=== PATIENT | female | born 1950 | race Two or more races ===

== ENCOUNTER 2021-12-09 14:49 | Inpatient (IN) | payer OTHER, MEDICAID ==
[~2021-12-09] VITALS: Ht 165.1 cm; Wt 70.8 kg
[2021-12-09] MEDS ORDERED: AZITHROMYCIN 500MG/ 250ML 250 ML IV ONE (18:30)
[2021-12-09] MEDS ORDERED: cefTRIAXone 1GM/50ML D5W 50 ML IV ONE (18:30)
[2021-12-09 19:31] LABS: Urine Bacteria MANY /hpf (None Seen); Urine Blood 2+ /uL (Negative); Urine Mucus FEW (None Seen); Urine Specific Gravity 1.022 (1.001-1.035); Urine WBC 169 /hpf (0 - 5); Urine WBC Clumps PRESENT /hpf (None Seen)
[2021-12-09 20:13] LABS: Hematocrit 43.4 % (36.0-46.0); Hemoglobin 14.8 g/dL (12.2-16.2); Mean Corpuscular Hemoglobin 30.4 pg (28.0-32.0); Mean Corpuscular Volume 89.3 fL (80.0-100.0); Red Blood Cells 4.86 10^6/uL (4.0-5.20); Red Cell Distribution Width 14.3 % (11.8-14.3); White Blood Cell 14.5 10^3/uL (4.4-10.8)
[2021-12-09 20:16] LABS: Basophils % (manual) 0 (0.0-2.0); Blast Cells 0; Eosinophils % (manual) 0 (0-7); Metamyelocytes % 0; Myelocytes % 0; Promyelocytes % 0; Reactive Lymphocytes 0
[2021-12-09 20:31] LABS: Albumin 2.4 g/dL (3.4-5.0); Calcium 8.9 mg/dL (8.5-10.1); Magnesium 3.2 mg/dL (1.6-2.6); Potassium 4.7 mmol/L (3.5-5.1)
[2021-12-09 20:36] LABS: BUN/Creatinine Ratio 26.8; Bilirubin, Total 0.3 mg/dL (0.2-1.0); Total Protein 7.8 g/dL (6.4-8.2)
[2021-12-09 21:03] LABS: Band Neutrophils % (manual) 3; Lymphocytes % (manual) 4 (10.0-50.0); Monocytes % (manual) 3 (0-12)
[2021-12-09] MEDS ORDERED: DexAMETHasone SOD PHOS 10MG/1ML VIAL INJ IV ONE (21:30)
[2021-12-10] MEDS ORDERED: MORPHINE SULFATE 4 MG/ML SYR/VIAL IV ONE ×2 (01:30→05:00)
[2021-12-10] MEDS ORDERED: ONDANSETRON HCL 4 MG/2 ML VIAL IV ONE (01:30)
[2021-12-10] MEDS ORDERED: DEXTROSE (50%) 50ML SYRG IV PRN (06:00)
[2021-12-10] MEDS ORDERED: MORPHINE SULFATE INJECTION 2 MG/ML SYRG IV PRN (06:00)
[2021-12-10] MEDS ORDERED: DOCUSATE SOD 100 MG CAP PO PRN (06:00)
[2021-12-10] MEDS ORDERED: ACETAMINOPHEN 500 MG TAB PO PRN (06:00)
[2021-12-10] MEDS ORDERED: NITROGLYCERIN 0.4 MG SL TAB SL PRN (06:00)
[2021-12-10] MEDS ORDERED: REMDESIVIR PER PHARMACY 0 ML IV SCH (08:30)
[2021-12-10] MEDS: ACCU-CHEK COMFORT CURVE STRIP VI SCH ×4 (09:55→23:19)
[2021-12-10] MEDS: InsuLIN REG 1unit/0.01ml Soln (100units/ml) SC SCH ×4 (09:55→23:29)
[2021-12-10] MEDS: FAMOTIDINE (10MG/ML) 2ML VL IV SCH ×2 (10:00→23:23)
[2021-12-10] MEDS: MULTIPLE VITAMIN TAB PO SCH (10:00)
[2021-12-10] MEDS: AZITHROMYCIN 500MG/ 250ML 250 ML IV SCH (10:00)
[2021-12-10] MEDS: DexAMETHasone SOD PHOS 10MG/1ML VIAL INJ IV SCH (10:00)
[2021-12-10] MEDS: ASCORBIC ACID 1,000 MG TAB PO SCH (10:00)
[2021-12-10] MEDS: ZINC SULFATE 220mg CAP or TAB PO SCH (10:00)
[2021-12-10] MEDS: CHOLECALCIFEROL (VITD3) 2,000 UNIT CAP/TAB PO SCH (10:00)
[2021-12-10] MEDS: ENOXAPARIN SOD 40 MG/0.4 ML SYRINGE SC SCH ×2 (10:00→23:23)
[2021-12-10] MEDS: SODIUM CHLOR 0.9% PF (SALINE LOCK) 10ML VIAL/SYR IV SCH ×3 (10:15→23:19)
[2021-12-10] MEDS: cefTRIAXone 1GM/50ML D5W 50 ML IV SCH (10:49)
[2021-12-10] MEDS: MORPHINE SULFATE 4 MG/ML SYR/VIAL IV PRN ×2 (14:47→20:08)
[2021-12-10] MEDS: BUDESONIDE (INHALATION) 180 MCG IH IN SCH ×2 (14:48→22:00)
[2021-12-10] MEDS: ONDANSETRON HCL 4 MG/2 ML VIAL IV PRN (14:48)
[2021-12-10] MEDS ORDERED: REMDESIVIR 200 MG in NS 210ml LOADING DOSE ADULT IV ONE (15:00)
[2021-12-10 19:30] VITALS: BP 154/77
[2021-12-10] MEDS: HYDROcodone-ACET 5/325MG TAB PO PRN (21:52)
[2021-12-10 22:00] VITALS: BP 161/72
[2021-12-10] MEDS ORDERED: TEMAZEPAM 15 MG CAP PO PRN (22:30)
[2021-12-10] MEDS ORDERED: LABETALOL HCL 5 MG/ML 4ML SYRINGE IV PRN (23:15)
[2021-12-11] MEDS: MORPHINE SULFATE 4 MG/ML SYR/VIAL IV PRN ×2 (00:17→04:58)
[2021-12-11] MEDS ORDERED: VANCOMYCIN PER PHARMACY 0 MG IV SCH (02:45)
[2021-12-11] MEDS ORDERED: VANCOMYCIN 1GM/250ML 250 ML IV ONE (03:00)
[2021-12-11 05:00] VITALS: BP 164/86
[2021-12-11] MEDS ORDERED: ALBUTEROL SULF 2.5 MG/0.5ML(0.5%) NEB SOLN NEB PRN (05:30)
[2021-12-11] MEDS ORDERED: dilTIAZem 25 MG/5 ML VIAL IV ONE ×2 (05:30→05:31)
[2021-12-11] MEDS ORDERED: ADENOSINE 6 MG/2 ML INJ IV ONE ×4 (05:55→06:15)
[2021-12-11] MEDS: SODIUM CHLOR 0.9% PF (SALINE LOCK) 10ML VIAL/SYR IV SCH ×3 (06:08→21:23)
[2021-12-11] MEDS: ACCU-CHEK COMFORT CURVE STRIP VI SCH ×4 (06:09→21:33)
[2021-12-11] MEDS: InsuLIN REG 1unit/0.01ml Soln (100units/ml) SC SCH ×4 (06:16→21:33)
[2021-12-11] MEDS ORDERED: AMIODARONE HCL 150 MG in D5W 5% 100 ML IV ONE (06:45)
[2021-12-11] MEDS ORDERED: AMIODARONE 450mg/250ml AE 250 ML IV SCH ×2 (07:00→13:00)
[2021-12-11 08:42] VITALS: BP 122/70
[2021-12-11] MEDS: BUDESONIDE (INHALATION) 180 MCG IH IN SCH ×2 (09:31→22:00)
[2021-12-11] MEDS: cefTRIAXone 1GM/50ML D5W 50 ML IV SCH (10:38)
[2021-12-11] MEDS: ZINC SULFATE 220mg CAP or TAB PO SCH (10:39)
[2021-12-11] MEDS: DexAMETHasone SOD PHOS 10MG/1ML VIAL INJ IV SCH (10:39)
[2021-12-11] MEDS: FAMOTIDINE (10MG/ML) 2ML VL IV SCH ×2 (10:39→21:23)
[2021-12-11] MEDS: METOPROLOL TARTRATE 25 MG TAB PO SCH ×2 (10:40→21:24)
[2021-12-11] MEDS: MULTIPLE VITAMIN TAB PO SCH (10:40)
[2021-12-11] MEDS: CHOLECALCIFEROL (VITD3) 2,000 UNIT CAP/TAB PO SCH (10:40)
[2021-12-11] MEDS: ASCORBIC ACID 1,000 MG TAB PO SCH (10:40)
[2021-12-11] MEDS: HYDROcodone-ACET 5/325MG TAB PO PRN ×2 (10:41→15:40)
[2021-12-11] MEDS: ENOXAPARIN SOD 40 MG/0.4 ML SYRINGE SC SCH (10:41)
[2021-12-11] MEDS: AZITHROMYCIN 500MG/ 250ML 250 ML IV SCH (11:44)
[2021-12-11] MEDS: LORazepam 0.5 MG TAB PO PRN ×2 (14:15→21:49)
[2021-12-11] MEDS ORDERED: dilTIAZem 125mg/125ml BAG KIT 125 ML IV SCH (14:30)
[2021-12-11] MEDS ORDERED: ENOXAPARIN SOD 100 MG/1 ML SYRINGE SC ONE (14:45)
[2021-12-11 15:01] LABS: Albumin 2.2 g/dL (3.4-5.0); Potassium 4.6 mmol/L (3.5-5.1)
[2021-12-11 15:03] LABS: Basophils # (auto) 0.1 10 ^3/uL (0-0.2); Basophils % (auto) 0.5 % (0.0-2.0); Eosinophils # (auto) 0.5 10 ^3/uL (0-0.8); Eosinophils % (auto) 4.2 % (0.0-7.0); Hematocrit 39.9 % (36.0-46.0); Hemoglobin 13.1 g/dL (12.2-16.2); Lymphocytes # (auto) 0.2 10 ^3/uL (0.4-5.4); Mean Corpuscular Hemoglobin 29.7 pg (28.0-32.0); Mean Corpuscular Volume 90.1 fL (80.0-100.0); Monocytes # (auto) 0.3 10 ^3/uL (0-1.3); Monocytes % (auto) 2.2 % (0.0-12.0); Neutrophils # (auto) 10.8 10 ^3/uL (1.6-8.6); Neutrophils % (auto) 91.1 % (37.0-80.0); Nucleated Red Blood Cells % 0.1 %; Red Blood Cells 4.42 10^6/uL (4.0-5.20); Red Cell Distribution Width 14.4 % (11.8-14.3); White Blood Cell 11.9 10^3/uL (4.4-10.8)
[2021-12-11 15:06] LABS: BUN/Creatinine Ratio 32.4; Bilirubin, Total 0.3 mg/dL (0.2-1.0); Total Protein 7.1 g/dL (6.4-8.2)
[2021-12-11 15:07] LABS: INR 1.37 (0.9-1.15)
[2021-12-11 15:08] LABS: Magnesium 2.4 mg/dL (1.6-2.6)
[2021-12-11 15:18] LABS: CRP High Sensitivity 12.1 mg/dL (< 0.3)
[2021-12-11 15:28] LABS: Thyroid Stimulating Hormone 0.72 uIU/mL (0.358-3.74)
[2021-12-11] MEDS: VANCOMYCIN 1GM/250ML 250 ML IV SCH (16:44)
[2021-12-11 17:00] VITALS: BP 123/71
[2021-12-11] MEDS: REMDESIVIR 100mg 100 MG in SODIUM CHL 0.9% 230 ML IV SCH (20:28)
[2021-12-11] MEDS: AMIODARONE HCL 200 MG TAB PO SCH (21:23)
[2021-12-11] MEDS: ENOXAPARIN SOD 80 MG/0.8ML SYRINGE SC SCH (21:24)
[2021-12-11 22:00] VITALS: BP 126/58
[2021-12-11] MEDS ORDERED: INSULIN LANTUS (GLARGINE) 1 /0.01ml (100units/ml) SC SCH (22:00)
[2021-12-11] MEDS: ALBUTEROL SULF HFA 90MCG INH 200DOSE IN PRN (22:49)
[2021-12-12] MEDS: HYDROcodone-ACET 5/325MG TAB PO PRN ×2 (00:05→15:03)
[2021-12-12] MEDS: VANCOMYCIN 1GM/250ML 250 ML IV SCH ×2 (04:44→18:47)
[2021-12-12] MEDS: SODIUM CHLOR 0.9% PF (SALINE LOCK) 10ML VIAL/SYR IV SCH ×3 (05:08→21:08)
[2021-12-12] MEDS: ACCU-CHEK COMFORT CURVE STRIP VI SCH ×4 (06:08→20:51)
[2021-12-12] MEDS: InsuLIN REG 1unit/0.01ml Soln (100units/ml) SC SCH ×4 (06:10→20:56)
[2021-12-12 06:17] LABS: Basophils # (auto) 0 10 ^3/uL (0-0.2); Basophils % (auto) 0.2 % (0.0-2.0); Eosinophils # (auto) 0 10 ^3/uL (0-0.8); Lymphocytes # (auto) 0.4 10 ^3/uL (0.4-5.4); Mean Corpuscular Hgb Conc. 33.4 g/dL (32.0-36.0); Mean Corpuscular Volume 89.9 fL (80.0-100.0); Monocytes # (auto) 0.4 10 ^3/uL (0-1.3); Monocytes % (auto) 5.4 % (0.0-12.0); Neutrophils # (auto) 6.5 10 ^3/uL (1.6-8.6); Neutrophils % (auto) 88.4 % (37.0-80.0); Nucleated Red Blood Cells % 0.1 %; Red Blood Cells 4.34 10^6/uL (4.0-5.20); Red Cell Distribution Width 14.4 % (11.8-14.3); White Blood Cell 7.3 10^3/uL (4.4-10.8)
[2021-12-12 06:29] LABS: INR 1.3 (0.9-1.15)
[2021-12-12 06:33] LABS: Potassium 4.6 mmol/L (3.5-5.1)
[2021-12-12 06:38] LABS: BUN/Creatinine Ratio 43.3; Calcium 9.1 mg/dL (8.5-10.1); Magnesium 2.7 mg/dL (1.6-2.6)
[2021-12-12 08:37] VITALS: BP 149/71
[2021-12-12] MEDS: cefTRIAXone 1GM/50ML D5W 50 ML IV SCH (08:55)
[2021-12-12] MEDS: MORPHINE SULFATE INJECTION 2 MG/ML SYRG IV PRN ×2 (08:56→13:17)
[2021-12-12] MEDS ORDERED: REMDESIVIR 200 MG in NS 210ml LOADING DOSE ADULT IV ONE (09:00)
[2021-12-12] MEDS: AZITHROMYCIN 500MG/ 250ML 250 ML IV SCH (10:37)
[2021-12-12] MEDS: DexAMETHasone SOD PHOS 10MG/1ML VIAL INJ IV SCH (10:37)
[2021-12-12] MEDS: MULTIPLE VITAMIN TAB PO SCH (10:39)
[2021-12-12] MEDS: METOPROLOL TARTRATE 25 MG TAB PO SCH ×2 (10:39→21:09)
[2021-12-12] MEDS: AMIODARONE HCL 200 MG TAB PO SCH ×2 (10:39→21:08)
[2021-12-12] MEDS: ASCORBIC ACID 1,000 MG TAB PO SCH (10:39)
[2021-12-12] MEDS: ZINC SULFATE 220mg CAP or TAB PO SCH (10:39)
[2021-12-12] MEDS: ENOXAPARIN SOD 80 MG/0.8ML SYRINGE SC SCH ×2 (10:40→21:09)
[2021-12-12] MEDS: CHOLECALCIFEROL (VITD3) 2,000 UNIT CAP/TAB PO SCH (10:40)
[2021-12-12 12:38] VITALS: BP 140/85
[2021-12-12] MEDS: BUDESONIDE (INHALATION) 180 MCG IH IN SCH ×2 (13:15→22:21)
[2021-12-12] MEDS: REMDESIVIR 100mg 100 MG in SODIUM CHL 0.9% 230 ML IV SCH (15:03)
[2021-12-12 15:17] VITALS: BP 153/88
[2021-12-12] MEDS ORDERED: FUROSEMIDE 20 MG/2 ML VIAL IV ONE (15:30)
[2021-12-12] MEDS ORDERED: ALPR0.25 PO (15:56)
[2021-12-12] MEDS ORDERED: TRAZ1TAB12 PO (15:56)
[2021-12-12] MEDS ORDERED: INSUINJ2 SC (15:56)
[2021-12-12] MEDS ORDERED: MULT-1018 PO (15:56)
[2021-12-12] MEDS ORDERED: ACET-1156 PO (15:56)
[2021-12-12] MEDS ORDERED: MAGN400S25 PO (15:56)
[2021-12-12] MEDS ORDERED: GABA-339 PO (15:56)
[2021-12-12] MEDS ORDERED: LEVO500T31 PO (15:56)
[2021-12-12] MEDS ORDERED: CHOL1CAP59 PO (15:56)
[2021-12-12] MEDS ORDERED: ZOLP10TA PO (15:56)
[2021-12-12] MEDS ORDERED: GABA300C10 PO (15:56)
[2021-12-12 16:55] VITALS: BP 146/81
[2021-12-12 17:34] VITALS: BP 138/84
[2021-12-12 21:05] VITALS: BP 125/78
[2021-12-12] MEDS ORDERED: INSULIN LANTUS (GLARGINE) 1 /0.01ml (100units/ml) SC SCH (22:00)
[2021-12-13 04:21] VITALS: BP 154/86
[2021-12-13] MEDS: SODIUM CHLOR 0.9% PF (SALINE LOCK) 10ML VIAL/SYR IV SCH ×3 (04:39→23:05)
[2021-12-13] MEDS: VANCOMYCIN 1GM/250ML 250 ML IV SCH (04:40)
[2021-12-13] MEDS: ACCU-CHEK COMFORT CURVE STRIP VI SCH ×4 (05:11→22:29)
[2021-12-13] MEDS: InsuLIN REG 1unit/0.01ml Soln (100units/ml) SC SCH ×4 (05:13→22:49)
[2021-12-13 06:49] LABS: Potassium 3.7 mmol/L (3.5-5.1)
[2021-12-13 06:52] LABS: INR 1.37 (0.9-1.15)
[2021-12-13 06:53] LABS: Magnesium 2.1 mg/dL (1.6-2.6)
[2021-12-13 07:35] LABS: CRP High Sensitivity 2.51 mg/dL (< 0.3)
[2021-12-13] MEDS: cefTRIAXone 1GM/50ML D5W 50 ML IV SCH (08:44)
[2021-12-13 09:00] VITALS: BP 147/81
[2021-12-13] MEDS: AZITHROMYCIN 500MG/ 250ML 250 ML IV SCH (10:36)
[2021-12-13] MEDS: DexAMETHasone SOD PHOS 10MG/1ML VIAL INJ IV SCH (10:36)
[2021-12-13] MEDS: ENOXAPARIN SOD 80 MG/0.8ML SYRINGE SC SCH ×2 (10:36→22:29)
[2021-12-13] MEDS: CHOLECALCIFEROL (VITD3) 2,000 UNIT CAP/TAB PO SCH (10:36)
[2021-12-13] MEDS: MULTIPLE VITAMIN TAB PO SCH (10:37)
[2021-12-13] MEDS: METOPROLOL TARTRATE 25 MG TAB PO SCH ×2 (10:37→22:29)
[2021-12-13] MEDS: ZINC SULFATE 220mg CAP or TAB PO SCH (10:37)
[2021-12-13] MEDS: ASCORBIC ACID 1,000 MG TAB PO SCH (10:37)
[2021-12-13] MEDS: AMIODARONE HCL 200 MG TAB PO SCH ×2 (10:38→22:28)
[2021-12-13] MEDS: BUDESONIDE (INHALATION) 180 MCG IH IN SCH ×2 (11:00→19:19)
[2021-12-13 11:30] LABS: Albumin 2.3 g/dL (3.4-5.0); Calcium 9.5 mg/dL (8.5-10.1); Potassium 3.5 mmol/L (3.5-5.1)
[2021-12-13 11:46] LABS: BUN/Creatinine Ratio 30.8; Bilirubin, Total 0.3 mg/dL (0.2-1.0); Total Protein 6.8 g/dL (6.4-8.2)
[2021-12-13 13:00] VITALS: BP 137/73
[2021-12-13] MEDS ORDERED: POTASSIUM CHL 20 Meq TABLET PO ONE (14:15)
[2021-12-13] MEDS ORDERED: REMDESIVIR 100mg 100 MG in SODIUM CHL 0.9% 230 ML IV SCH (15:00)
[2021-12-13] MEDS: FUROSEMIDE 20 MG/2 ML VIAL IV SCH (15:11)
[2021-12-13] MEDS: REMDESIVIR 100mg 100 MG in SODIUM CHL 0.9% 230 ML IV SCH (15:11)
[2021-12-13 17:00] VITALS: BP 110/62
[2021-12-13] MEDS: ALBUTEROL SULF HFA 90MCG INH 200DOSE IN PRN (19:19)
[2021-12-13 20:00] VITALS: BP 113/66
[2021-12-13 21:34] VITALS: BP 113/66
[2021-12-13] MEDS: INSULIN LANTUS (GLARGINE) 1 /0.01ml (100units/ml) SC SCH (23:02)
[2021-12-14 04:41] VITALS: BP 110/60
[2021-12-14] MEDS: ALBUTEROL SULF HFA 90MCG INH 200DOSE IN PRN ×2 (05:56→19:35)
[2021-12-14] MEDS: BUDESONIDE (INHALATION) 180 MCG IH IN SCH ×2 (05:56→19:35)
[2021-12-14] MEDS: ACCU-CHEK COMFORT CURVE STRIP VI SCH ×4 (06:37→22:28)
[2021-12-14] MEDS: SODIUM CHLOR 0.9% PF (SALINE LOCK) 10ML VIAL/SYR IV SCH ×3 (06:37→22:23)
[2021-12-14] MEDS: InsuLIN REG 1unit/0.01ml Soln (100units/ml) SC SCH ×4 (06:49→22:27)
[2021-12-14 07:48] LABS: Magnesium 2.1 mg/dL (1.6-2.6); Potassium 3.6 mmol/L (3.5-5.1)
[2021-12-14] MEDS: cefTRIAXone 1GM/50ML D5W 50 ML IV SCH (09:27)
[2021-12-14] MEDS: AMIODARONE HCL 200 MG TAB PO SCH ×2 (09:28→22:24)
[2021-12-14] MEDS: DexAMETHasone SOD PHOS 10MG/1ML VIAL INJ IV SCH (09:28)
[2021-12-14] MEDS: FUROSEMIDE 20 MG/2 ML VIAL IV SCH (09:28)
[2021-12-14] MEDS: ZINC SULFATE 220mg CAP or TAB PO SCH (09:28)
[2021-12-14] MEDS: CHOLECALCIFEROL (VITD3) 2,000 UNIT CAP/TAB PO SCH (09:29)
[2021-12-14] MEDS: ASCORBIC ACID 1,000 MG TAB PO SCH (09:29)
[2021-12-14] MEDS: METOPROLOL TARTRATE 25 MG TAB PO SCH ×2 (09:29→22:24)
[2021-12-14] MEDS: MULTIPLE VITAMIN TAB PO SCH (09:29)
[2021-12-14] MEDS: POTASSIUM CHL 10 Meq TABLET PO SCH (09:29)
[2021-12-14 09:30] VITALS: BP 136/78
[2021-12-14] MEDS: ENOXAPARIN SOD 80 MG/0.8ML SYRINGE SC SCH ×2 (09:30→22:28)
[2021-12-14] MEDS: HYDROcodone-ACET 5/325MG TAB PO PRN (09:30)
[2021-12-14] MEDS: AZITHROMYCIN 500MG/ 250ML 250 ML IV SCH (10:30)
[2021-12-14 13:09] VITALS: BP 127/69
[2021-12-14] MEDS ORDERED: FLUCONAZOLE 200MG/100ML 100 ML IV ONE (15:30)
[2021-12-14] MEDS: REMDESIVIR 100mg 100 MG in SODIUM CHL 0.9% 230 ML IV SCH (15:34)
[2021-12-14 17:11] VITALS: BP 117/67
[2021-12-14] MEDS: MORPHINE SULFATE INJECTION 2 MG/ML SYRG IV PRN (17:33)
[2021-12-14 22:23] VITALS: BP 139/65
[2021-12-14] MEDS: INSULIN LANTUS (GLARGINE) 1 /0.01ml (100units/ml) SC SCH (22:25)
[2021-12-15] MEDS: MORPHINE SULFATE INJECTION 2 MG/ML SYRG IV PRN ×4 (00:18→17:42)
[2021-12-15] MEDS: ONDANSETRON HCL 4 MG/2 ML VIAL IV PRN ×2 (01:02→05:11)
[2021-12-15 04:41] VITALS: BP 127/60
[2021-12-15 05:55] LABS: Basophils # (auto) 0 10 ^3/uL (0-0.2); Basophils % (auto) 0.5 % (0.0-2.0); Eosinophils # (auto) 0 10 ^3/uL (0-0.8); Eosinophils % (auto) 0.1 % (0.0-7.0); Hematocrit 44.7 % (36.0-46.0); Hemoglobin 14.9 g/dL (12.2-16.2); Lymphocytes # (auto) 1.1 10 ^3/uL (0.4-5.4); Lymphocytes % (auto) 12.2 % (10.0-50.0); Mean Corpuscular Hemoglobin 30.2 pg (28.0-32.0); Mean Corpuscular Hgb Conc. 33.4 g/dL (32.0-36.0); Mean Corpuscular Volume 90.4 fL (80.0-100.0); Monocytes # (auto) 1.1 10 ^3/uL (0-1.3); Monocytes % (auto) 13.1 % (0.0-12.0); Neutrophils # (auto) 6.4 10 ^3/uL (1.6-8.6); Neutrophils % (auto) 74.1 % (37.0-80.0); Nucleated Red Blood Cells % 0.1 %; Red Blood Cells 4.95 10^6/uL (4.0-5.20); Red Cell Distribution Width 14.2 % (11.8-14.3); White Blood Cell 8.7 10^3/uL (4.4-10.8)
[2021-12-15 06:37] LABS: Calcium 9.3 mg/dL (8.5-10.1); Potassium 3.8 mmol/L (3.5-5.1)
[2021-12-15 06:40] LABS: BUN/Creatinine Ratio 41.5
[2021-12-15] MEDS: InsuLIN REG 1unit/0.01ml Soln (100units/ml) SC SCH ×4 (07:00→22:28)
[2021-12-15] MEDS: ACCU-CHEK COMFORT CURVE STRIP VI SCH ×4 (07:02→22:00)
[2021-12-15] MEDS: SODIUM CHLOR 0.9% PF (SALINE LOCK) 10ML VIAL/SYR IV SCH ×3 (07:02→22:00)
[2021-12-15 09:00] VITALS: BP 136/82
[2021-12-15] MEDS: DexAMETHasone SOD PHOS 10MG/1ML VIAL INJ IV SCH (09:33)
[2021-12-15] MEDS: cefTRIAXone 1GM/50ML D5W 50 ML IV SCH (09:33)
[2021-12-15] MEDS: FUROSEMIDE 20 MG/2 ML VIAL IV SCH (09:33)
[2021-12-15] MEDS: ZINC SULFATE 220mg CAP or TAB PO SCH (09:34)
[2021-12-15] MEDS: POTASSIUM CHL 10 Meq TABLET PO SCH (09:34)
[2021-12-15] MEDS: AMIODARONE HCL 200 MG TAB PO SCH ×2 (09:34→22:26)
[2021-12-15] MEDS: ASCORBIC ACID 1,000 MG TAB PO SCH (09:35)
[2021-12-15] MEDS: ENOXAPARIN SOD 80 MG/0.8ML SYRINGE SC SCH ×2 (09:35→22:31)
[2021-12-15] MEDS: CHOLECALCIFEROL (VITD3) 2,000 UNIT CAP/TAB PO SCH (09:35)
[2021-12-15] MEDS: METOPROLOL TARTRATE 25 MG TAB PO SCH ×2 (09:35→22:27)
[2021-12-15] MEDS: MULTIPLE VITAMIN TAB PO SCH (09:35)
[2021-12-15] MEDS: BUDESONIDE (INHALATION) 180 MCG IH IN SCH ×2 (10:00→19:43)
[2021-12-15] MEDS: FLUCONAZOLE 200MG/100ML 100 ML IV SCH (11:37)
[2021-12-15] MEDS: GABAPENTIN 300 MG CAP PO SCH ×2 (11:38→22:27)
[2021-12-15 13:00] VITALS: BP 136/88
[2021-12-15 17:00] VITALS: BP 147/82
[2021-12-15 22:00] VITALS: BP 132/72
[2021-12-15] MEDS: INSULIN LANTUS (GLARGINE) 1 /0.01ml (100units/ml) SC SCH (22:31)
[2021-12-16 05:00] VITALS: BP 116/62
[2021-12-16 05:32] LABS: Basophils # (auto) 0 10 ^3/uL (0-0.2); Basophils % (auto) 0.6 % (0.0-2.0); Eosinophils # (auto) 0 10 ^3/uL (0-0.8); Eosinophils % (auto) 0.5 % (0.0-7.0); Hematocrit 43.9 % (36.0-46.0); Hemoglobin 14.8 g/dL (12.2-16.2); Lymphocytes # (auto) 1.1 10 ^3/uL (0.4-5.4); Mean Corpuscular Hemoglobin 30.7 pg (28.0-32.0); Mean Corpuscular Hgb Conc. 33.9 g/dL (32.0-36.0); Mean Corpuscular Volume 90.6 fL (80.0-100.0); Monocytes # (auto) 0.9 10 ^3/uL (0-1.3); Neutrophils # (auto) 6.2 10 ^3/uL (1.6-8.6); Neutrophils % (auto) 74.9 % (37.0-80.0); Nucleated Red Blood Cells % 0.1 %; Red Blood Cells 4.84 10^6/uL (4.0-5.20); Red Cell Distribution Width 14.1 % (11.8-14.3); White Blood Cell 8.3 10^3/uL (4.4-10.8)
[2021-12-16 05:59] LABS: Potassium 4.2 mmol/L (3.5-5.1)
[2021-12-16 06:04] LABS: BUN/Creatinine Ratio 43.7; Calcium 8.8 mg/dL (8.5-10.1)
[2021-12-16] MEDS: ACCU-CHEK COMFORT CURVE STRIP VI SCH ×5 (06:24→21:53)
[2021-12-16] MEDS: SODIUM CHLOR 0.9% PF (SALINE LOCK) 10ML VIAL/SYR IV SCH ×3 (06:25→22:07)
[2021-12-16] MEDS: InsuLIN REG 1unit/0.01ml Soln (100units/ml) SC SCH ×5 (06:26→22:03)
[2021-12-16 09:00] VITALS: BP 134/74
[2021-12-16] MEDS: FUROSEMIDE 20 MG/2 ML VIAL IV SCH (09:04)
[2021-12-16] MEDS: cefTRIAXone 1GM/50ML D5W 50 ML IV SCH (09:04)
[2021-12-16] MEDS: ZINC SULFATE 220mg CAP or TAB PO SCH (09:04)
[2021-12-16] MEDS: DexAMETHasone SOD PHOS 10MG/1ML VIAL INJ IV SCH (09:04)
[2021-12-16] MEDS: AMIODARONE HCL 200 MG TAB PO SCH ×2 (09:05→22:10)
[2021-12-16] MEDS: MULTIPLE VITAMIN TAB PO SCH (09:06)
[2021-12-16] MEDS: GABAPENTIN 300 MG CAP PO SCH ×2 (09:06→22:11)
[2021-12-16] MEDS: POTASSIUM CHL 10 Meq TABLET PO SCH (09:06)
[2021-12-16] MEDS: METOPROLOL TARTRATE 25 MG TAB PO SCH ×2 (09:06→22:10)
[2021-12-16] MEDS: ENOXAPARIN SOD 80 MG/0.8ML SYRINGE SC SCH ×2 (09:07→22:11)
[2021-12-16] MEDS: CHOLECALCIFEROL (VITD3) 2,000 UNIT CAP/TAB PO SCH (09:07)
[2021-12-16] MEDS: ASCORBIC ACID 1,000 MG TAB PO SCH (09:07)
[2021-12-16] MEDS: BUDESONIDE (INHALATION) 180 MCG IH IN SCH ×2 (09:50→19:40)
[2021-12-16] MEDS: FLUCONAZOLE 200MG/100ML 100 ML IV SCH (10:00)
[2021-12-16 13:00] VITALS: BP 131/67
[2021-12-16] MEDS ORDERED: DEXTROSE (50%) 50ML SYRG IV PRN (16:45)
[2021-12-16 17:00] VITALS: BP 126/68
[2021-12-16] MEDS: HYDROcodone-ACET 5/325MG TAB PO PRN (17:08)
[2021-12-16] MEDS: ALBUTEROL SULF HFA 90MCG INH 200DOSE IN PRN (19:40)
[2021-12-16 22:00] VITALS: BP 137/87
[2021-12-16] MEDS: INSULIN LANTUS (GLARGINE) 1 /0.01ml (100units/ml) SC SCH (22:03)
[2021-12-17 05:00] VITALS: BP 142/73
[2021-12-17] MEDS: SODIUM CHLOR 0.9% PF (SALINE LOCK) 10ML VIAL/SYR IV SCH ×3 (05:03→21:09)
[2021-12-17 05:56] LABS: Basophils # (auto) 0 10 ^3/uL (0-0.2); Basophils % (auto) 0.2 % (0.0-2.0); Eosinophils # (auto) 0 10 ^3/uL (0-0.8); Eosinophils % (auto) 0.1 % (0.0-7.0); Hematocrit 44.7 % (36.0-46.0); Lymphocytes # (auto) 1.1 10 ^3/uL (0.4-5.4); Lymphocytes % (auto) 12.1 % (10.0-50.0); Mean Corpuscular Hgb Conc. 33.6 g/dL (32.0-36.0); Mean Corpuscular Volume 89.2 fL (80.0-100.0); Monocytes # (auto) 0.9 10 ^3/uL (0-1.3); Monocytes % (auto) 9.5 % (0.0-12.0); Neutrophils # (auto) 7.2 10 ^3/uL (1.6-8.6); Neutrophils % (auto) 78.1 % (37.0-80.0); Nucleated Red Blood Cells % 0.1 %; Red Blood Cells 5.01 10^6/uL (4.0-5.20); Red Cell Distribution Width 14.5 % (11.8-14.3); White Blood Cell 9.2 10^3/uL (4.4-10.8)
[2021-12-17 06:08] LABS: BUN/Creatinine Ratio 46.3; Potassium 4.9 mmol/L (3.5-5.1)
[2021-12-17] MEDS: ACCU-CHEK COMFORT CURVE STRIP VI SCH ×4 (06:23→21:12)
[2021-12-17] MEDS: InsuLIN REG 1unit/0.01ml Soln (100units/ml) SC SCH ×5 (06:26→21:27)
[2021-12-17] MEDS: ALBUTEROL SULF HFA 90MCG INH 200DOSE IN PRN ×2 (07:21→19:03)
[2021-12-17] MEDS: BUDESONIDE (INHALATION) 180 MCG IH IN SCH ×2 (07:21→19:03)
[2021-12-17 07:30] VITALS: BP 122/74
[2021-12-17 09:00] VITALS: BP 106/51
[2021-12-17] MEDS: cefTRIAXone 1GM/50ML D5W 50 ML IV SCH (09:38)
[2021-12-17] MEDS: FLUCONAZOLE 200MG/100ML 100 ML IV SCH (09:39)
[2021-12-17] MEDS: DexAMETHasone SOD PHOS 10MG/1ML VIAL INJ IV SCH (09:39)
[2021-12-17] MEDS: POTASSIUM CHL 10 Meq TABLET PO SCH (09:41)
[2021-12-17] MEDS: ZINC SULFATE 220mg CAP or TAB PO SCH (09:41)
[2021-12-17] MEDS: AMIODARONE HCL 200 MG TAB PO SCH ×2 (09:41→21:10)
[2021-12-17] MEDS: FUROSEMIDE 20 MG/2 ML VIAL IV SCH (09:41)
[2021-12-17] MEDS: METOPROLOL TARTRATE 25 MG TAB PO SCH ×2 (09:42→21:11)
[2021-12-17] MEDS: MULTIPLE VITAMIN TAB PO SCH (09:42)
[2021-12-17] MEDS: CHOLECALCIFEROL (VITD3) 2,000 UNIT CAP/TAB PO SCH (09:43)
[2021-12-17] MEDS: ASCORBIC ACID 1,000 MG TAB PO SCH (09:43)
[2021-12-17] MEDS: GABAPENTIN 300 MG CAP PO SCH ×2 (09:43→21:11)
[2021-12-17] MEDS: ENOXAPARIN SOD 80 MG/0.8ML SYRINGE SC SCH ×2 (09:44→21:12)
[2021-12-17] MEDS: HYDROcodone-ACET 5/325MG TAB PO PRN (12:49)
[2021-12-17 13:00] VITALS: BP 132/68
[2021-12-17 17:00] VITALS: BP 119/67
[2021-12-17] MEDS ORDERED: InsuLIN REG 1unit/0.01ml Soln (100units/ml) IV ONE (17:00)
[2021-12-17] MEDS ORDERED: InsuLIN REG 1unit/0.01ml Soln (100units/ml) SC ONE (17:15)
[2021-12-17] MEDS: INSULIN LANTUS (GLARGINE) 1 /0.01ml (100units/ml) SC SCH (21:26)
[2021-12-17 22:00] VITALS: BP 112/60
[2021-12-18] MEDS: HYDROcodone-ACET 5/325MG TAB PO PRN (02:02)
[2021-12-18 05:00] VITALS: BP 111/62
[2021-12-18] MEDS: SODIUM CHLOR 0.9% PF (SALINE LOCK) 10ML VIAL/SYR IV SCH ×3 (05:18→21:35)
[2021-12-18 05:46] LABS: Basophils # (auto) 0 10 ^3/uL (0-0.2); Basophils % (auto) 0.3 % (0.0-2.0); Eosinophils # (auto) 0 10 ^3/uL (0-0.8); Hematocrit 44.4 % (36.0-46.0); Hemoglobin 14.9 g/dL (12.2-16.2); Lymphocytes # (auto) 1.2 10 ^3/uL (0.4-5.4); Lymphocytes % (auto) 12.7 % (10.0-50.0); Mean Corpuscular Hemoglobin 29.8 pg (28.0-32.0); Mean Corpuscular Hgb Conc. 33.6 g/dL (32.0-36.0); Mean Corpuscular Volume 88.7 fL (80.0-100.0); Monocytes # (auto) 0.8 10 ^3/uL (0-1.3); Monocytes % (auto) 8.6 % (0.0-12.0); Neutrophils # (auto) 7.5 10 ^3/uL (1.6-8.6); Neutrophils % (auto) 78.4 % (37.0-80.0); Nucleated Red Blood Cells % 0.1 %; Red Blood Cells 5.01 10^6/uL (4.0-5.20); Red Cell Distribution Width 14.1 % (11.8-14.3); White Blood Cell 9.5 10^3/uL (4.4-10.8)
[2021-12-18 06:02] LABS: Calcium 8.8 mg/dL (8.5-10.1)
[2021-12-18 06:04] LABS: BUN/Creatinine Ratio 57.7
[2021-12-18] MEDS: ACCU-CHEK COMFORT CURVE STRIP VI SCH ×4 (06:37→21:29)
[2021-12-18] MEDS: InsuLIN REG 1unit/0.01ml Soln (100units/ml) SC SCH ×4 (06:39→21:36)
[2021-12-18 09:00] VITALS: BP 112/53
[2021-12-18] MEDS: DexAMETHasone SOD PHOS 10MG/1ML VIAL INJ IV SCH (09:46)
[2021-12-18] MEDS: FLUCONAZOLE 200MG/100ML 100 ML IV SCH (09:47)
[2021-12-18] MEDS: FUROSEMIDE 20 MG/2 ML VIAL IV SCH (09:47)
[2021-12-18] MEDS: ZINC SULFATE 220mg CAP or TAB PO SCH (09:47)
[2021-12-18] MEDS: METOPROLOL TARTRATE 25 MG TAB PO SCH ×2 (09:48→21:47)
[2021-12-18] MEDS: AMIODARONE HCL 200 MG TAB PO SCH ×2 (09:48→21:46)
[2021-12-18] MEDS: MULTIPLE VITAMIN TAB PO SCH (09:48)
[2021-12-18] MEDS: ENOXAPARIN SOD 80 MG/0.8ML SYRINGE SC SCH (09:49)
[2021-12-18] MEDS: GABAPENTIN 300 MG CAP PO SCH ×2 (09:49→21:46)
[2021-12-18] MEDS: ASCORBIC ACID 1,000 MG TAB PO SCH (09:49)
[2021-12-18] MEDS ORDERED: SODIUM ZIRCONIUM CYCL 10 GM PAK PO ONE (10:00)
[2021-12-18] MEDS: BUDESONIDE (INHALATION) 180 MCG IH IN SCH ×2 (10:13→17:48)
[2021-12-18] MEDS: ALBUTEROL SULF HFA 90MCG INH 200DOSE IN PRN ×2 (10:14→17:48)
[2021-12-18] MEDS ORDERED: BUDE2SUS3 IN (12:31)
[2021-12-18] MEDS ORDERED: MET25T PO (12:31)
[2021-12-18] MEDS ORDERED: ASCO10003 PO (12:31)
[2021-12-18] MEDS ORDERED: ALBUAER3 IN (12:31)
[2021-12-18] MEDS ORDERED: DOXY-286 PO (12:31)
[2021-12-18] MEDS ORDERED: DEX4T PO (12:31)
[2021-12-18] MEDS ORDERED: AMIO200T33 PO (12:31)
[2021-12-18] MEDS ORDERED: ZINC220T6 PO (12:31)
[2021-12-18] MEDS ORDERED: APIX2.5T PO (12:31)
[2021-12-18] MEDS ORDERED: FLUC200T35 PO (12:31)
[2021-12-18] MEDS ORDERED: FAMO20TA10 PO (12:31)
[2021-12-18] MEDS ORDERED: CHOL20007 PO (12:31)
[2021-12-18] MEDS: cefTRIAXone 1GM/50ML D5W 50 ML IV SCH (12:40)
[2021-12-18] MEDS: CHOLECALCIFEROL (VITD3) 2,000 UNIT CAP/TAB PO SCH (12:41)
[2021-12-18 13:00] VITALS: BP 126/75
[2021-12-18 17:00] VITALS: BP 136/76
[2021-12-18] MEDS: MORPHINE SULFATE INJECTION 2 MG/ML SYRG IV PRN (18:29)
[2021-12-18] MEDS: INSULIN LANTUS (GLARGINE) 1 /0.01ml (100units/ml) SC SCH (21:36)
[2021-12-18] MEDS: APIXABAN 2.5 MG TAB PO SCH (21:46)
[2021-12-19] MEDS: MORPHINE SULFATE INJECTION 2 MG/ML SYRG IV PRN ×2 (03:11→12:05)
[2021-12-19 05:00] VITALS: BP 130/72
[2021-12-19] MEDS: SODIUM CHLOR 0.9% PF (SALINE LOCK) 10ML VIAL/SYR IV SCH ×2 (06:47→14:00)
[2021-12-19] MEDS: ACCU-CHEK COMFORT CURVE STRIP VI SCH ×2 (06:47→12:05)
[2021-12-19 06:48] LABS: Magnesium 3.4 mg/dL (1.6-2.6); Potassium 5.1 mmol/L (3.5-5.1)
[2021-12-19] MEDS: InsuLIN REG 1unit/0.01ml Soln (100units/ml) SC SCH ×2 (06:50→12:07)
[2021-12-19 09:00] VITALS: BP 130/70
[2021-12-19] MEDS ORDERED: SODIUM ZIRCONIUM CYCL 10 GM PAK PO ONE (09:46)
[2021-12-19] MEDS ORDERED: DexAMETHasone 4 MG TAB PO SCH (10:00)
[2021-12-19] MEDS: cefTRIAXone 1GM/50ML D5W 50 ML IV SCH (10:53)
[2021-12-19] MEDS: ZINC SULFATE 220mg CAP or TAB PO SCH (10:54)
[2021-12-19] MEDS: AMIODARONE HCL 200 MG TAB PO SCH (10:54)
[2021-12-19] MEDS: APIXABAN 2.5 MG TAB PO SCH (10:54)
[2021-12-19] MEDS: FUROSEMIDE 20 MG/2 ML VIAL IV SCH (10:54)
[2021-12-19] MEDS: ASCORBIC ACID 1,000 MG TAB PO SCH (10:55)
[2021-12-19] MEDS: METOPROLOL TARTRATE 25 MG TAB PO SCH (10:55)
[2021-12-19] MEDS: MULTIPLE VITAMIN TAB PO SCH (10:55)
[2021-12-19] MEDS: GABAPENTIN 300 MG CAP PO SCH (10:55)
[2021-12-19] MEDS: CHOLECALCIFEROL (VITD3) 2,000 UNIT CAP/TAB PO SCH (10:55)
[2021-12-19] MEDS: FLUCONAZOLE 200MG/100ML 100 ML IV SCH (11:46)
[2021-12-19 12:48] VITALS: BP 130/70
[2021-12-19] MEDS ORDERED: SODIUM ZIRCONIUM CYCL 10 GM PAK PO SCH (14:00)
[2021-12-19] MEDS: HYDROcodone-ACET 5/325MG TAB PO PRN (14:15)
== END 2021-12-19 17:41 | disposition hospice, home (50) | DRG 871 ==
LOC: ER 14:49 → EDBD 14:49 → TELE 12-10 05:52 → TELE-E-ADS 12-10 19:14
PROVIDERS: ADMIT Nurse Practitioner Family; ATTEND Internal Medicine
PROC: XW033E5 Introduction of Remdesivir Anti-infective into Peripheral Vein, Percutaneous Approach, New Technology Group 5 (ICD-10-PCS; principal; 2021-12-10)
PROC: 05HD33Z Insertion of Infusion Device into Right Cephalic Vein, Percutaneous Approach (ICD-10-PCS; 2021-12-11)
PROC: B54MZZA Ultrasonography of Right Upper Extremity Veins, Guidance (ICD-10-PCS; 2021-12-11)
DX: A41.89 Other specified sepsis (principal); U07.1 COVID-19; J12.82 Pneumonia due to coronavirus disease 2019; J96.21 Acute and chronic respiratory failure with hypoxia; I50.43 Acute on chronic combined systolic (congestive) and diastolic (congestive) heart failure; J44.1 Chronic obstructive pulmonary disease with (acute) exacerbation; I47.1 Supraventricular tachycardia; J44.0 Chronic obstructive pulmonary disease with (acute) lower respiratory infection; N39.0 Urinary tract infection, site not specified; I31.3 Pericardial effusion (noninflammatory); D89.839 Cytokine release syndrome, grade unspecified; E11.65 Type 2 diabetes mellitus with hyperglycemia; F41.9 Anxiety disorder, unspecified; I11.0 Hypertensive heart disease with heart failure; I25.10 Atherosclerotic heart disease of native coronary artery without angina pectoris; M19.90 Unspecified osteoarthritis, unspecified site; Z90.710 Acquired absence of both cervix and uterus
CPT/HCPCS: 36415; 71045; 80048; 80053; 80061; 80202; 81001; 82306; 82728; 82962; 83036; 83605; 83615; 83735; 83880; 84132; 84443; 84484; 85007; 85025; 85027; 85379; 85610; 86141; 87040; 87077; 87086; 87088; 87186; 87426; 93005; 93306; 94640; 96365; 96368; 96375; 97110; 97530; G0378; J0153; J0696; J1100; J1450; J1815; J2405; J3490; J7060